=== PATIENT | female | born 1945 | race Caucasian/White ===

== ENCOUNTER 2020-01-17 08:07 | Emergency (ER) | payer MEDICARE, OTHER ==
--- NOTE | 2020-01-17 08:31 | EDM.PDOC ---
ED HPI GENERAL MEDICAL PROBLEM - General Chief Complaint: Gastrointestinal Problem Stated Complaint: NAUSEA/VOMITING Time Seen by Provider: 01/17/20 08:24 - History of Present Illness INITIAL COMMENTS - FREE TEXT/NARRATIVE: 74-year-old female presents to the emergency room with nausea vomiting diarrhea and generally not feeling very good. On , now 4 days ago the patient was doing okay in the morning but passed out while eating at a restaurant. She got better went home just did not feel very good. Saturday she was feeling better however she noticed that she did not have any taste sensation. Saturday she developed loose stools about every 30 minutes and yesterday she developed some nausea with rare vomiting. The patient has a mild intermittent cough no chest pain chest pressure breathing difficulties or shortness of breath. The patient is a type II diabetic treated for hyperlipidemia. - Related Data Allergies Allergy/AdvReac Type Severity Reaction Status Date / Time aspirin Allergy Cannot Verified 01/17/20 08:26 Remember erythromycin base Allergy Cannot Verified 01/17/20 08:26 [Erythromycin Base] Remember Home Meds: Home Meds Citalopram [Citalopram HBr] 40 mg PO DAILY 01/17/20 [History] Clopidogrel Bisulfate [Plavix] 75 mg PO DAILY 01/17/20 [History] Digestive 8/L.acidoph/Pectin [Digestive Enzymes Tablet] 1 tab PO DAILY 01/17/20 [History] Fenofibrate 160 mg PO DAILY 01/17/20 [History] Lisinopril/Hydrochlorothiazide [Lisinopril-Hctz 20-25 mg Tab] 0.5 mg PO DAILY 01/17/20 [History] Omeprazole 20 mg PO DAILY 01/17/20 [History] Pantoprazole [ProTONIX] 40 mg PO DAILY 01/17/20 [History] Ubidecarenone [Co Q-10] 100 mg PO DAILY 01/17/20 [History] dexAMETHasone [Dexamethasone] 6 mg PO QAM #15 tablet 01/17/20 [Rx] metFORMIN [Glucophage] 500 mg PO BID 01/17/20 [History] ondansetron HCL [Ondansetron HCl] 4 mg PO Q6H PRN #10 tablet 01/17/20 [Rx] traMADol [Ultram] 50 mg PO DAILY 01/17/20 [History] ED ROS GENERAL - Review of Systems Review Of Systems: See Below Constitutional: Reports: No Symptoms HEENT: Reports: No Symptoms Respiratory: Reports: Cough. Denies: Shortness of Breath, Wheezing, Pleuritic Chest Pain Cardiovascular: Reports: No Symptoms Endocrine: Reports: No Symptoms GI/Abdominal: Reports: Abdominal Pain, Nausea, Vomiting. Denies: Black Stool, Bloody Stool : Reports: No Symptoms Musculoskeletal: Reports: No Symptoms Skin: Reports: No Symptoms Neurological: Reports: No Symptoms ED EXAM, GI/ABD - Physical Exam Exam: See Below Exam Limited By: No Limitations General Appearance: Alert, No Apparent Distress, Other (Some mild hypoxia occasionally O2 saturation drops into the upper 80s I saw it goes low as 89.) Eyes: Bilateral: Normal Appearance Ears: Normal External Exam, Normal Canal, Hearing Grossly Normal, Normal TMs Nose: Normal Inspection, Normal Mucosa, No Blood Throat/Mouth: Normal Inspection, Normal Lips, Normal Teeth, Normal Gums, Normal Oropharynx, Normal Voice, No Airway Compromise Head: Atraumatic, Normocephalic Neck: Normal Inspection. No: Full Range of Motion, Lymphadenopathy (R) Respiratory/Chest: No Respiratory Distress, Lungs Clear, Normal Breath Sounds Cardiovascular: Regular Rate, Rhythm, No Edema, No Murmur GI/Abdominal Exam: Normal Bowel Sounds, Soft, Non-Tender Back Exam: Normal Inspection. No: CVA Tenderness (L), CVA Tenderness (R) Extremities: Normal Inspection, Non-Tender, No Pedal Edema Neurological: Alert, Oriented, Normal Cognition EKG INTERPRETATION EKG Date: 01/17/20 Rhythm: NSR Riley: Normal P-Wave: Present QRS: Normal ST-T: Other (Nonspecific nondiagnostic ST depression inferior leads) QT: Prolonged (Borderline prolonged) Comparison: NA - No Prior EKG Course - Vital Signs Last Recorded V/S: Last Vital Signs Temp 37.2 C 01/17/20 08:23 Pulse 83 01/17/20 08:23 Resp 16 01/17/20 08:23 BP 167/80 H 01/17/20 08:23 Pulse Ox 90 L 01/17/20 08:23 - Orders/Labs/Meds Orders: Active Orders 24 hr Category Date Time Status EKG 12 Lead [EKG Documentation Completion] [RC] STAT Care 01/17/20 08:41 Active UA RFX LORA AND CULT IF INDIC [URIN] Stat Lab 01/17/20 08:39 Ordered Sodium Chloride 0.9% [Normal Saline] 100 ml Med 01/17/20 12:00 Active IV ASDIRECTED Sodium Chloride 0.9% [Saline Flush] Med 01/17/20 11:55 Active 10 ml FLUSH ONETIME PRN Medication Orders Sodium Chloride (Normal Saline) 100 mls @ 75 mls/hr IV ASDIRECTED VIVIEN Last Admin: 01/17/20 12:26 Dose: 75 mls/hr Documented by: HENRI Sodium Chloride (Saline Flush) 10 ml FLUSH ONETIME PRN PRN Reason: IV FLUSH Last Admin: 01/17/20 12:26 Dose: 10 ml Documented by: HENRI Labs: Laboratory Tests 01/17/20 01/17/20 01/17/20 Range/Units 08:30 08:30 08:30 WBC 3.66 L (3.98-10.04) K/mm3 RBC 4.07 (3.98-5.22) M/mm3 Hgb 11.9 (11.2-15.7) gm/dl Hct 36.7 (34.1-44.9) % MCV 90.2 (79.4-94.8) fl MCH 29.2 (25.6-32.2) pg MCHC 32.4 (32.2-35.5) g/dl RDW Std Deviation 42.8 (36.4-46.3) fL Plt Count 167 L (182-369) K/mm3 MPV 11.0 (9.4-12.3) fl Neutrophils % (Manual) 89 H (40-60) % Band Neutrophils % 0 (0-10) % Lymphocytes % (Manual) 10 L (20-40) % Atypical Lymphs % 0 % Monocytes % (Manual) 1 L (2-10) % Eosinophils % (Manual) 0 L (0.7-5.8) % Basophils % (Manual) 0 L (0.1-1.2) Platelet Estimate Adequate RBC Morph Comment Normal D-Dimer, Quantitative (0.19-0.50) mg/L Sodium 138 (136-145) mEq/L Potassium 3.4 L (3.5-5.1) mEq/L Chloride 100 (98-107) mEq/L Carbon Dioxide 25 (21-32) mEq/L Anion Gap 16.4 H (5-15) BUN 18 (7-18) mg/dL Creatinine 1.1 H (0.55-1.02) mg/dL Est Cr Clr Drug Dosing 48.31 mL/min Estimated GFR (MDRD) 49 (>60) mL/min BUN/Creatinine Ratio 16.4 (14-18) Glucose 157 H (83-115) mg/dL Calcium 9.2 (8.5-10.1) mg/dL Magnesium 1.4 L (1.8-2.4) mg/dl Ferritin 1136 H (8-252) ng/ml Total Bilirubin 0.5 (0.2-1.0) mg/dL AST 42 H (15-37) U/L ALT 38 (14-59) U/L Alkaline Phosphatase 47 (46-116) U/L Lactate Dehydrogenase 336 H (81-234) U/L Troponin I < 0.017 (0.00-0.056) ng/mL C-Reactive Protein 6.2 H* (<1.0) mg/dL NT-Pro-B Natriuret Pep (0-125) pg/mL Total Protein 8.1 (6.4-8.2) g/dl Albumin 3.6 (3.4-5.0) g/dl Globulin 4.5 gm/dL Albumin/Globulin Ratio 0.8 L (1-2) Lipase 250 (73-393) U/L SARS-CoV-2 RNA (JOSE) (NEGATIVE) 01/17/20 01/17/20 01/17/20 Range/Units 08:30 08:30 08:50 WBC (3.98-10.04) K/mm3 RBC (3.98-5.22) M/mm3 Hgb (11.2-15.7) gm/dl Hct (34.1-44.9) % MCV (79.4-94.8) fl MCH (25.6-32.2) pg MCHC (32.2-35.5) g/dl RDW Std Deviation (36.4-46.3) fL Plt Count (182-369) K/mm3 MPV (9.4-12.3) fl Neutrophils % (Manual) (40-60) % Band Neutrophils % (0-10) % Lymphocytes % (Manual) (20-40) % Atypical Lymphs % % Monocytes % (Manual) (2-10) % Eosinophils % (Manual) (0.7-5.8) % Basophils % (Manual) (0.1-1.2) Platelet Estimate RBC Morph Comment D-Dimer, Quantitative 1.00 H (0.19-0.50) mg/L Sodium (136-145) mEq/L Potassium (3.5-5.1) mEq/L Chloride (98-107) mEq/L Carbon Dioxide (21-32) mEq/L Anion Gap (5-15) BUN (7-18) mg/dL Creatinine (0.55-1.02) mg/dL Est Cr Clr Drug Dosing mL/min Estimated GFR (MDRD) (>60) mL/min BUN/Creatinine Ratio (14-18) Glucose (83-115) mg/dL Calcium (8.5-10.1) mg/dL Magnesium (1.8-2.4) mg/dl Ferritin (8-252) ng/ml Total Bilirubin (0.2-1.0) mg/dL AST (15-37) U/L ALT (14-59) U/L Alkaline Phosphatase (46-116) U/L Lactate Dehydrogenase (81-234) U/L Troponin I (0.00-0.056) ng/mL C-Reactive Protein (<1.0) mg/dL NT-Pro-B Natriuret Pep 365 H (0-125) pg/mL Total Protein (6.4-8.2) g/dl Albumin (3.4-5.0) g/dl Globulin gm/dL Albumin/Globulin Ratio (1-2) Lipase (73-393) U/L SARS-CoV-2 RNA (JOSE) Positive H (NEGATIVE) Meds: Medications Generic Name Dose Route Start Last Admin Trade Name Freq PRN Reason Stop Dose Admin Sodium Chloride 100 mls @ 75 mls/hr 01/17/20 12:00 01/17/20 12:26 Normal Saline IV 75 mls/hr ASDIRECTED VIVIEN Administration Sodium Chloride 10 ml 01/17/20 11:55 01/17/20 12:26 Saline Flush FLUSH 10 ml ONETIME PRN Administration IV FLUSH Discontinued Medications Generic Name Dose Route Start Last Admin Trade Name Freq PRN Reason Stop Dose Admin Dexamethasone 6 mg 01/17/20 13:48 Dexamethasone PO 01/17/20 13:49 ONETIME ONE Sodium Chloride 500 mls @ 999 mls/hr 01/17/20 08:56 01/17/20 09:05 Normal Saline IV 01/17/20 09:26 999 mls/hr .BOLUS ONE Administration Magnesium Sulfate 2 gm in 50 mls @ 25 mls/hr 01/17/20 11:15 01/17/20 11:24 Magnesium Sulfate In Water Premix IV 01/17/20 13:14 25 mls/hr ONETIME ONE Administration Iopamidol 100 ml 01/17/20 11:55 01/17/20 12:26 Isovue-370 (76%) IVPUSH 01/17/20 11:56 100 ml ONETIME ONE Administration Magnesium Sulfate 2 gm 01/17/20 11:07 Magnesium Sulfate In Water Premix IV 01/17/20 11:08 ONETIME ONE Ondansetron HCl 4 mg 01/17/20 13:50 Zofran Odt PO 01/17/20 13:51 ONETIME ONE Potassium Chloride 40 meq 01/17/20 11:07 01/17/20 11:24 Klor-Con M20 PO 01/17/20 11:08 40 meq ONETIME ONE Administration - Re-Assessments/Exams Free Text/Narrative Re-Assessment/Exam: 01/17/20 11:11 Labs consistent with COVID her LDH is elevated D-dimers elevated ferritin is elevated she is got a lymphocytosis. We will check a CTA of her chest reexamined of the lower extremities is unremarkable. Chest x-ray is suggestive of early peripheral infiltrates right upper most aspect and I believe she is developing some in the left base as well and right lower base. 01/17/20 13:52 CT is unremarkable discussed discharge planning with the patient we will give her some Zofran as needed for nausea and vomiting. She is to be started on dexamethasone 6 mg once daily for 6 days short course with her diabetes. Her first dose of dexamethasone is received here in the emergency room the patient uses a tramadol 1 tablet daily this should not be a big problem with her getting Zofran. Departure - Departure Time of Disposition: 13:53 Disposition: Home, Self-Care 01 Clinical Impression: Pneumonia due to COVID-19 virus - Discharge Information Referrals: Linda Varner NP [Primary Care Provider] - Forms: ED Department Discharge Additional Instructions: Return to the emergency room with any questions problems or worsening symptoms. Keep a close eye on your blood sugars you have been started on dexamethasone which could make her blood sugars react unfavorably. If this turns out to be the problem call your regular healthcare provider. Sepsis Event Note (ED) - Focused Exam Vital Signs: Vital Signs Temp Pulse Resp BP Pulse Ox 01/17/20 08:23 37.2 C 83 16 167/80 H 90 L - My Orders Last 24 Hours: My Active Orders 01/17/20 08:39 UA RFX LORA AND CULT IF INDIC [URIN] Stat 01/17/20 08:41 EKG 12 Lead [EKG Documentation Completion] [RC] STAT 01/17/20 11:55 Sodium Chloride 0.9% [Saline Flush] 10 ml FLUSH ONETIME PRN 01/17/20 12:00 Sodium Chloride 0.9% [Normal Saline] 100 ml IV ASDIRECTED - Assessment/Plan Last 24 Hours: My Active Orders 01/17/20 08:39 UA RFX LORA AND CULT IF INDIC [URIN] Stat 01/17/20 08:41 EKG 12 Lead [EKG Documentation Completion] [RC] STAT 01/17/20 11:55 Sodium Chloride 0.9% [Saline Flush] 10 ml FLUSH ONETIME PRN 01/17/20 12:00 Sodium Chloride 0.9% [Normal Saline] 100 ml IV ASDIRECTED
[2020-01-17] MEDS ORDERED: Sodium Chloride 0.9% 500 ML IV ONE (08:56)
--- NOTE | 2020-01-17 09:03 | CR ---
Chest: Portable view of the chest was seen. Comparison: Prior chest x-ray of 02/09/13. Mild areas of increased density is noted within the right upper and right lower lung. Left lung is clear. Heart size and mediastinum are within normal limits for portable technique. Bony structures show slight endplate spurring within the spine. Impression: 1. Mild areas of increased density within the right upper and right lower lung. Findings most likely represent mild Covid pneumonia. Diagnostic code #5 This report was dictated in MDT
[2020-01-17] MEDS ORDERED: Magnesium Sulfate/Water 2 GM/50 ML Premix Bag IV ONE (11:07)
[2020-01-17] MEDS ORDERED: Potassium Chloride 20 MEQ Tab.ER PO ONE (11:07)
[2020-01-17] MEDS ORDERED: Magnesium Sulfate/Water 2 GM/50 ML BAG IV ONE (11:15)
[2020-01-17] MEDS ORDERED: Sodium Chloride 0.9% 10 ML Syringe FLUSH PRN (11:55)
[2020-01-17] MEDS ORDERED: Iopamidol 755 Mg/ML 100 ML Bottle IVPUSH ONE (11:55)
[2020-01-17] MEDS ORDERED: Sodium Chloride 0.9% 100 ML IV SCH (12:00)
--- NOTE | 2020-01-17 12:47 | CT ---
CT chest Technique: Multiple axial sections were obtained to the chest. Intravenous contrast was utilized. Study has been performed as a pulmonary angiogram protocol. Comparison: Prior chest x-ray performed earlier on the same day (8:32 AM). Findings: Pulmonary arteries are moderately well opacified. No filling defects are seen to indicate pulmonary embolism. Aorta shows no aneurysm. Mediastinal lymph nodes are seen believed to be within normal limits. No axillary adenopathy is appreciated. Patchy areas of increased density are noted on both sides of the chest. No pleural effusions are seen. Bone window settings were reviewed which shows mild scattered degenerative change throughout the spine. No acute osseous finding is appreciated. Impression: 1. No findings of pulmonary embolism. 2. Patchy areas of increased density within both sides of the chest compatible having the appearance of Covid pneumonia. Diagnostic code #5 This report was dictated in MDT
[2020-01-17] MEDS ORDERED: Dexamethasone 4 MG Tab PO ONE (13:48)
[2020-01-17] MEDS ORDERED: Ondansetron 4 MG Tab.DIS PO ONE (13:50)
== END 2020-01-17 14:54 | disposition home or self-care (01) ==
LOC: JD.ED 08:07
DX: U07.1 COVID-19 (principal); J12.89 Other viral pneumonia; E11.9 Type 2 diabetes mellitus without complications; E78.5 Hyperlipidemia, unspecified; Z88.6 Allergy status to analgesic agent; Z88.1 Allergy status to other antibiotic agents; Z79.899 Other long term (current) drug therapy; Z79.02 Long term (current) use of antithrombotics/antiplatelets; Z79.84 Long term (current) use of oral hypoglycemic drugs; Z20.828 Contact with and (suspected) exposure to other viral communicable diseases
CPT/HCPCS: 36415; 71045; 71275; 80053; 82728; 83615; 83690; 83735; 83880; 84484; 85007; 85027; 85379; 86140; 93005; 96361; 96365; 96366; 99284; A9270; J3475; J7030; J7050; J8540; Q9967; U0002; 93010; 99283